=== PATIENT | male | born 1980 | race Caucasian/White ===

== ENCOUNTER 2019-01-12 09:43 | Emergency (ER) | payer OTHER ==
[~2019-01-12] VITALS: Ht 182.9 cm; Wt 72.6 kg
[2019-01-12 10:44] LABS: ABSOLUTE EOSINOPHILS 0.1 thou/uL (0.0-0.7); ABSOLUTE LYMPHOCYTES 0.6 thou/uL (0.8-5.3); ABSOLUTE MONOCYTES 0.5 thou/uL (0.0-1.2); ABSOLUTE NEUTROPHILS 5.5 thou/uL (1.6-8.1); BASOPHILS 0.7 %; EOSINOPHILS 1.8 %; HEMATOCRIT 41.8 % (42.0-52.0); HEMOGLOBIN 14.3 gm/dL (14.0-18.0); LYMPHOCYTES 8.1 %; MCH 31.5 pg (26.0-34.0); MCHC 34.3 g/dL (28.0-37.0); MCV 91.8 fL (80.0-100.0); MONOCYTES 8.1 %; MPV 7.2 fl. (7.2-11.1); NUCLEATED RBCS 0 /100WBC; PLATELET COUNT* 223 thou/uL (150-400); POLYS 81.3 %; RBC 4.55 mil/uL (4.50-6.00); RDW-CV 13.3 % (10.5-14.5); WBC 6.8 thou/uL (4.0-11.0)
[2019-01-12 10:53] LABS: CALCIUM 8.7 mg/dL (8.5-10.1); CREATININE 0.7 mg/dL (0.6-1.3); POTASSIUM 4.2 mmol/L (3.5-5.1)
[2019-01-12 10:57] LABS: ALBUMIN 3.7 g/dL (3.4-5.0); TOTAL BILIRUBIN 1.4 mg/dL (<0.1-1.0); TOTAL PROTEIN 6.5 g/dL (6.4-8.2)
[2019-01-12 11:33] VITALS: BP 139/85
== END 2019-01-12 11:34 | disposition home or self-care (01) ==
LOC: M.ERS 09:43
PROVIDERS: Personal Emergency Response Attendant
DX: R60.0 Localized edema (principal)